=== PATIENT | male | born 1995 | race African-American/Black ===

== ENCOUNTER 2019-09-02 12:12 | Emergency (ER) | payer OTHER ==
[~2019-09-02] VITALS: Ht 182.9 cm; Wt 74.8 kg
--- NOTE | 2019-09-02 12:15 | NUR ---
c/o asthma attack. Patient a/ox4, noted with mild sob. Attached to the automatic lathe setter.
--- NOTE | 2019-09-02 12:20 | NUR ---
RT at bedside.
[2019-09-02] MEDS ORDERED: ALBUTEROL FS 2.5 MG/3 ML VIAL.NEB ONE (12:24)
[2019-09-02] MEDS ORDERED: IPRATROPIUM NEB FS 0.5 MG/2.5 ML AMPUL.NEB ONE (12:25)
[2019-09-02] MEDS ORDERED: predniSONE 20 MG TABLET ONE (12:27)
[2019-09-02] MEDS ORDERED: predniSONE 20 MG TABLET PO ONE (12:30)
[2019-09-02] MEDS ORDERED: ALBUTEROL FS 2.5 MG/3 ML VIAL.NEB NEB ONE (12:30)
[2019-09-02] MEDS ORDERED: ALBUTEROL FS 2.5 MG/3 ML VIAL.NEB CONTNEB ONE (12:30)
[2019-09-02] MEDS ORDERED: IPRATROPIUM NEB FS 0.5 MG/2.5 ML AMPUL.NEB NEB ONE (12:30)
[2019-09-02 14:10] VITALS: BP 112/72
--- NOTE | 2019-09-02 14:10 | NUR ---
patient a/ox4, breathing even and unlabored, no sob noted. Patient discharged to home in stable condition. Written and verbal after care instructions given. Patient verbalizes understanding of instruction.
== END 2019-09-02 14:10 | disposition home or self-care (01) ==
LOC: ER 12:18
DX: J45.909 Unspecified asthma, uncomplicated (principal)
CPT/HCPCS: 94644; 99285; J7512